=== PATIENT | female | born 1970 | race African-American/Black ===

== ENCOUNTER 2022-05-15 00:23 | Emergency (ER) | payer MEDICARE ==
[~2022-05-15] VITALS: Ht 170.2 cm; Wt 73.6 kg
[2022-05-15] MEDS ORDERED: SODIUM CHLORIDE 0.9% 1,000 ML IV ONE (00:30)
[2022-05-15] MEDS ORDERED: ALTEPLASE 100MG/VIAL IV STA (00:59)
[2022-05-15] MEDS ORDERED: ALTEPLASE IV STA (00:59)
[2022-05-15] MEDS ORDERED: IOHEXOL-350 100 ML BOTTLE ONE (01:11)
[2022-05-15] MEDS ORDERED: ALTEPLASE IV NR (01:15)
[2022-05-15] MEDS ORDERED: CONTAINER EMPTY IV NR (01:15)
[2022-05-15] MEDS ORDERED: *NO ASPIRIN X 24 HOURS XX SCH (01:15)
[2022-05-15] MEDS ORDERED: ALTEPLASE 100MG/VIAL IV NR (01:15)
[2022-05-15 01:31] LABS: BASOPHILS % 0.4 % (0.0-2.0); EOSINOPHILS % 5.4 % (0.0-5.0); HEMATOCRIT. 34.1 % (36.0-48.0); HEMOGLOBIN. 11.7 g/dL (12.0-16.0); LYMPHOCYTES % 46.3 % (20.0-50.0); MEAN CORPUSCULAR HEMOGLOBIN 36.7 pg (28.0-32.0); MEAN CORPUSCULAR VOLUME 106.5 fL (81.0-99.0); MEAN PLATELET VOLUME 6.8 fl (7.4-10.4); NEUTROPHILS % 39.9 % (40.0-76.0); PLATELET 163 x1000/uL (130-400); RED CELL DISTRIBUTION WIDTH 15.4 % (11.6-14.6)
[2022-05-15 01:49] LABS: PROTHROMBIN TIME 10.9 sec (9.6-11.0)
[2022-05-15 01:57] LABS: CHLORIDE 106 mEq/L (98-107)
[2022-05-15 02:06] LABS: ETHANOL BLOOD < 10 mg/dL
[2022-05-15] MEDS ORDERED: DIPHENHYDRAMINE 50MG/ML VIAL IV NR (02:45)
[2022-05-15 02:59] LABS: CLARITY URINE CLEAR (CLEAR); COLOR URINE YELLOW (YELLOW); KETONES URINE NEGATIVE (NEGATIVE); LEUKOCYTE ESTERASE URINE NEGATIVE (NEGATIVE); NITRITE URINE NEGATIVE (NEGATIVE); OCCULT BLOOD URINE NEGATIVE (NEGATIVE); PH URINE 7.5 (4.5-8.0); PROTEIN URINE NEGATIVE (NEGATIVE); UROBILINOGEN URINE 0.2 E.U./dL (0.2-1.0)
[2022-05-15 03:27] LABS: *AMPHETAMINES SCREEN URINE NEGATIVE (NEGATIVE); *BARBITURATES SCREEN URINE NEGATIVE (NEGATIVE); *BENZODIAZEPINES SCREEN URINE NEGATIVE (NEGATIVE); *COCAINE SCREEN URINE NEGATIVE (NEGATIVE); METHADONE URINE SCREEN NEGATIVE (NEGATIVE); OPIATES URINE SCREEN NEGATIVE (NEGATIVE); PHENCYCLIDINE URINE SCREEN NEGATIVE (NEGATIVE)
[2022-05-15 03:59] LABS: CANNABINOID URINE SCREEN PRESUMTIVE POSITIVE (NEGATIVE)
[2022-05-15 05:00] VITALS: BP 143/71
== END 2022-05-15 05:26 | disposition short-term general hospital (02) ==
LOC: ER 00:29 → EDBEDREQSVC 02:40 → EDBEDREQ 02:40 → EDBEDREQTM 02:40 → ER 05:26 → CANBEDREQ 05-17 06:50
DX: I63.9 Cerebral infarction, unspecified (principal); Z20.822 Contact with and (suspected) exposure to COVID-19
CPT/HCPCS: 36415; 70450; 70496; 70498; 71045; 80053; 80305; 80320; 81003; 84484; 85025; 85610; 86850; 86900; 86901; 87426; 93005; 96361; 96374; 99291; C9803; J1200; J2997; J7030; Q9967; J7060; G0480